=== PATIENT | male | born 1975 | race Caucasian/White ===

== ENCOUNTER → 2016-06-14 | Outpatient (CLI) | payer MEDICARE, MEDICAID ==
[~2016-06-14] MED LIST: ARIPIPRAZOLE5 MG PO; CELEXA20 MG PO; INVEGA SUS39 MG/0.25; INVEGA6 MG PO; NICODERM CQ1 EAC1 TRANS; NICORETTE 2 MG2 MG PO; PROVENTIL OR V6.7 GM; STRATTERA25 MG PO; XANAX0.5 MG PO; XANAX1 MG PO
== END | disposition disaster alternative care site (69) ==
LOC: GAMB 14:06
DX: R46.2 Strange and inexplicable behavior (principal); E11.9 Type 2 diabetes mellitus without complications; R45.851 Suicidal ideations
CPT/HCPCS: A0425; A0428

== ENCOUNTER → 2016-07-17 | Outpatient (CLI) | payer MEDICARE, MEDICAID | END | disposition disaster alternative care site (69) | LOC: GAMB 11:05 | DX: R45.851 Suicidal ideations (principal); F31.9 Bipolar disorder, unspecified; F20.9 Schizophrenia, unspecified; R45.850 Homicidal ideations; Z91.5 Personal history of self-harm | CPT/HCPCS: A0425; A0428 ==